=== PATIENT | male | born 1970 | race Caucasian/White ===

== ENCOUNTER 2017-02-01 20:55 | Inpatient (IN) | payer MEDICARE, BC ==
[~2017-02-01] VITALS: Ht 172.7 cm; Wt 96.3 kg
[~2017-02-01 20:55] MED LIST: IND20 PO; LOXA50CA PO; NAPR-688 PO; SERT50TA PO; TRAZ100T15 PO
[2017-02-01 20:57] VITALS: Ht 172.7 cm; Wt 96.3 kg
[2017-02-01] MEDS ORDERED: DIPHTH/TET/ACEL PERTUSS (ADULT) 0.5 ML VIAL IM* ONE (22:00)
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
--- NOTE | 2017-02-01 22:22 | RADRPT ---
PROCEDURE: CT Head without. CLINICAL INDICATION: Head injury. TECHNIQUE: The study was performed utilizing a multi-slice, multidetector CT scanner. Direct spira l 1 mm axial sections were obtained through the head without the use of intravenous contrast materia l. 1 or more of the following dose reduction techniques were utilized: Automated exposure control, adjustment of the mA and/or kV according to patient's size, iterative reconstruction technique. Co ирина and sagittal reformations were obtained. The images were reviewed on a PACS workstation. RADIATION DOSE: CTDIvol: 43.2 mGyDLP: 844.2 mGy-cm COMPARISON: 06/10/2012 FINDINGS: There is asymmetric prominence of the left tentorial leaflet relative to the right, measuring 4-5 mm in maximal diameter, concerning for possible subdural hemorrhage. There is mild streak artifact al suzanne the margins of the left posterior temporal and parietal lobes, without definite subdural or intr aparenchymal hemorrhage in these regions. There is no mass lesion, midline shift or hydrocephalus. The ventricles, sulci and cisterns are within normal limits. The white matter is unremarkable. Th e jung-white matter differentiation is preserved. The basal cisterns are patent. The midline struc tures are intact. There are benign bilateral basal ganglia calcifications. There is severe soft ti ssue swelling in the left parietal region with subgaleal hematoma extending anteriorly. There is no evidence of underlying calvarial fracture. The orbits are normal in appearance. The visualized par anasal sinuses, mastoid air cells and middle ear cavities are normally aerated. IMPRESSION: 1. Asymmetric prominence of the left tentorial leaflet relative to the right, concerning for possib le small subdural hemorrhage in this region. 2. Soft tissue swelling in the left parietal region with subsequent subgaleal hematoma. No evidenc e of underlying calvarial fracture. RPTAT: HGAS .Yakov Link MD, Date Time Electronically viewed and signed by .Yakov Link MD, MD on 02/01/2017 22:22 .S/
[2017-02-01] MEDS ORDERED: ONDANSETRON 4 MG INJ IV STA (22:55)
[2017-02-01] MEDS ORDERED: morphine 4 MG/ML VIAL IV STA (22:55)
--- NOTE | 2017-02-01 23:13 | EN ---
Date/Time of Note Date/Time of Note DATE: 02/01/17 TIME: 23:12 ER Progress Note Discuss case with on-call neurosurgeon Dr. Barnett. Patient be admitted to ICU to hospitalist. Laceration Repair by me: Anesthesia: 1% lidocaine locally Location: Scalp Tendon/Joint/Nerves: No injury Foreign body: None detected after copious irrigation and exploration Technique: [place] Complexity: No subcutaneous sutures/mucosal repair/ edge excision Post Closure Length: 3 cm Patient's bleeding was easily controlled in the department and there is no indication of anemia. No evidence of compartment syndrome, neurologic injury, vascular injury, open joint, tendon laceration, or foreign body. Patient is appropriate for outpatient follow up. 48 hour wound check. Scar minimization instructions given. FRANCIE FERGUSON Feb 01, 2017 23:13
[2017-02-01 23:14] LABS: ADD SCAN DIFF NO
[2017-02-01 23:18] LABS: ABNORMAL IP MESSAGE 1; HEMATOCRIT 39.8 % (42.0-52.0); HEMOGLOBIN 13.6 g/dl (14.0-18.0); MEAN CORPUSCULAR HEMOGLOBIN 32.1 pg (29.0-33.0); MEAN CORPUSCULAR HGB CONC 34.2 g/dl (32.0-37.0); MEAN CORPUSCULAR VOLUME 93.9 fl (82.0-101.0); MEAN PLATELET VOLUME 10.2 fl (7.4-10.4); PLATELET COUNT 81 10^3/UL (140-415); RED BLOOD COUNT 4.24 10^6/ul (4.70-6.10); RED CELL DISTRIBUTION WIDTH 14.4 % (11.5-14.5); WHITE BLOOD COUNT 4.2 10^3/ul (4.8-10.8)
[2017-02-01 23:32] LABS: INR 1.13; PARTIAL THROMBOPLASTIN TIME 26.2 Sec (25.0-35.0); PROTIME 14.5 Sec (12.2-14.2); PT RATIO 1.1
[2017-02-01 23:35] LABS: ALANINE AMINOTRANSFERASE 54 IU/L (13-69); ALBUMIN 4.5 g/dl (3.3-4.9); ALBUMIN/GLOBULIN RATIO 1.45; ALKALINE PHOSPHATASE 188 IU/L (42-121); ANION GAP 12 (8-16); ASPARTATE AMINO TRANSFERASE 57 IU/L (15-46); BLOOD UREA NITROGEN 10 mg/dl (7-20); CALCIUM 8.9 mg/dl (8.4-10.2); CARBON DIOXIDE 23 mmol/L (21-31); CHLORIDE 107 mmol/L (97-110); CREATININE 0.74 mg/dl (0.61-1.24); GLUCOSE 110 mg/dl (70-220); POTASSIUM 3.7 mmol/L (3.5-5.1); SODIUM 138 mmol/L (135-144); TOTAL PROTEIN 7.6 g/dl (6.1-8.1)
[2017-02-01 23:46] LABS: B-TYPE NATRIURETIC PEPTIDE 16 PG/ML (0-125)
[2017-02-01 23:47] LABS: TROPONIN-I < 0.012 ng/ml (0.00-0.12)
[2017-02-02] VITALS (8 sets, daily range): BP systolic 99–146; BP diastolic 59–92; PULSE 70–77; RESP 18–23; TEMP 79.9
[2017-02-02 00:29] LABS: LYMPHOCYTES # 0.8 10^3/ul (0.8-2.9); MONOCYTE # 0.3 10^3/ul (0.3-0.9); NEUTROPHIL # 3.1 10^3/ul (1.6-7.5); PLATELET ESTIMATE PLT APPEAR DECREASED
--- NOTE | 2017-02-02 00:29 | RADRPT ---
PROCEDURE: XR Chest. CLINICAL INDICATION: Chest pain. TECHNIQUE: Portable AP upright view of the chest was obtained. COMPARISON: 05/03/2012 FINDINGS: The cardiomediastinal silhouette is within normal limits allowing for technique. The lungs are silvana r. There is no evidence for pleural effusion, pneumothorax or pulmonary vascular congestion. The o sseous structures are intact with no evidence for acute abnormality. RPTAT:HJJR IMPRESSION: No evidence for acute intrathoracic pathology. Physician Quincy Date Time Electronically viewed and signed by Physician Quincy on 02/02/2017 00:29 JR/
[2017-02-02] MEDS ORDERED: LABETALOL HCL 20MG INJ IV ONE (02:30)
[2017-02-02] MEDS ORDERED: morphine 4 MG/ML VIAL IV STA (05:07)
[2017-02-02] MEDS ORDERED: LORAZEPAM 2 MG INJ IV PRN (06:30)
[2017-02-02] MEDS ORDERED: ONDANSETRON 4 MG INJ IV PRN (06:30)
[2017-02-02] MEDS ORDERED: ACETAMINOPHEN 650MG/20.3ML CUP PO PRN (06:30)
[2017-02-02] MEDS ORDERED: morphine 2 MG INJ IV PRN (06:30)
[2017-02-02 06:38] LABS: ADD SCAN DIFF NO
[2017-02-02 06:47] LABS: ABNORMAL IP MESSAGE 1; HEMATOCRIT 39.1 % (42.0-52.0); HEMOGLOBIN 13.7 g/dl (14.0-18.0); MEAN CORPUSCULAR VOLUME 94.2 fl (82.0-101.0); MEAN PLATELET VOLUME 10.4 fl (7.4-10.4); PLATELET COUNT 79 10^3/UL (140-415); RED BLOOD COUNT 4.15 10^6/ul (4.70-6.10); RED CELL DISTRIBUTION WIDTH 14.5 % (11.5-14.5); WHITE BLOOD COUNT 4.2 10^3/ul (4.8-10.8)
[2017-02-02 07:01] LABS: ALBUMIN 4.4 g/dl (3.3-4.9); ALBUMIN/GLOBULIN RATIO 1.51; BILIRUBIN,INDIRECT 1.6 mg/dl (0-1.1); BILIRUBIN,TOTAL 1.6 mg/dl (0.2-1.3); CALCIUM 8.8 mg/dl (8.4-10.2); CREATININE 0.76 mg/dl (0.61-1.24); POTASSIUM 4.1 mmol/L (3.5-5.1); TOTAL PROTEIN 7.3 g/dl (6.1-8.1)
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
[2017-02-02] MEDS ORDERED: SERTRALINE 50 MG TAB PO SCH (09:00)
[2017-02-02] MEDS ORDERED: PROPRANOLOL 20 MG TAB PO SCH (09:00)
[2017-02-02 09:16] LABS: MONOCYTE # 0.6 10^3/ul (0.3-0.9); NEUTROPHIL # 2.6 10^3/ul (1.6-7.5); PLATELET ESTIMATE PLT APPEAR DECREASED
[2017-02-02] MEDS ORDERED: hydrALAzine 20 MG INJ IV PRN (09:30)
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
--- NOTE | 2017-02-02 09:58 | PN ---
Date/Time of Note Date/Time of Note DATE: 02/02/17 TIME: 09:58 Assessment/Plan Lines/Catheters IV Catheter Type (from [facility]): Peripheral IV Exam/Review of Systems Vital Signs Vitals Vital Signs Date Time Temp Pulse Resp B/P Pulse Ox O2 Delivery O2 Flow Rate FiO2 02/02/17 05:52 73 18 135/75 99 Nasal Cannula 02/02/17 04:30 3.0 02/02/17 03:30 98.4 Results Result Diagram: 02/02/17 0630 02/02/17 0630 Results 24 hrs Laboratory Tests Test 02/01/17 22:45 02/02/17 06:30 White Blood Count 4.2 L 4.2 L Red Blood Count 4.24 #L 4.15 L Hemoglobin 13.6 #L 13.7 L Hematocrit 39.8 #L 39.1 L Mean Corpuscular Volume 93.9 94.2 Mean Corpuscular Hemoglobin 32.1 33.0 Mean Corpuscular Hemoglobin Concent 34.2 35.0 Red Cell Distribution Width 14.4 14.5 Platelet Count 81 L 79 L Mean Platelet Volume 10.2 # 10.4 Neutrophils % 74.0 61.0 Band Neutrophils % 1.0 Lymphocytes % 18.0 23.0 Monocytes % 7.0 14.0 H Neutrophils # 3.1 2.6 Lymphocytes # 0.8 1.0 Monocytes # 0.3 0.6 Platelet Estimate PLT APPEAR DECREASED PLT APPEAR DECREASED Prothrombin Time 14.5 H Prothrombin Time Ratio 1.1 INR International Normalized Ratio 1.13 Activated Partial Thromboplast Time 26.2 Sodium Level 138 143 Potassium Level 3.7 4.1 Chloride Level 107 109 Carbon Dioxide Level 23 24 Anion Gap 12 14 Blood Urea Nitrogen 10 12 Creatinine 0.74 0.76 Glucose Level 110 108 Calcium Level 8.9 8.8 Total Bilirubin 1.0 1.6 H Direct Bilirubin 0.00 0.00 Indirect Bilirubin 1.0 1.6 H Aspartate Amino Transf (AST/SGOT) 57 H 51 H Alanine Aminotransferase (ALT/SGPT) 54 51 Alkaline Phosphatase 188 H 130 H Troponin I < 0.012 B-Type Natriuretic Peptide 16 Total Protein 7.6 7.3 Albumin 4.5 4.4 Globulin 3.10 2.90 Albumin/Globulin Ratio 1.45 1.51 Eosinophils % 1.0 Myelocytes % 1.0 H Eosinophils # 0.0 Myelocytes # 0.0 Large Platelets OCCASIONAL Medications Medications Current Medications Ondansetron HCl (Zofran Inj) 4 mg Q6H PRN IV NAUSEA AND/OR VOMITING; Start 02/02 at 06:30 Acetaminophen (Tylenol Liquid) 650 mg Q6H PRN PO PAIN LEVEL 1-3 OR FEVER; Start 02/02/17 at 06:30 Morphine Sulfate (morphine) 2 mg Q4H PRN IV PAIN LEVEL 7-10; Start 02/02/17 at 06:30 Lorazepam (Ativan) 1 mg Q2H PRN IV ANXIETY; Start 02/02/17 at 06:30 Propranolol HCl (Inderal) 10 mg BID PO Last administered on 02/02/17 08:57; Admin Dose 10 MG; Start 02/02/17 at 09:00 Sertraline HCl (Zoloft) 150 mg QAM PO ; Start 02/02/17 at 09:00 Trazodone HCl (Desyrel) 100 mg HS PO ; Start 02/02/17 at 21:00 Miscellaneous Information 50 mg HS PO ; Start 02/02/17 at 21:00; Status UNV Hydralazine HCl (Apresoline) 10 mg Q4H PRN IV sbp>160; Start 02/02/17 at 09:30 BHAVIN COOPER Feb 02, 2017 09:58
--- NOTE | 2017-02-02 10:01 | QN ---
Documentation Comment Observation Note: Time: 4 hours Family Hx: Negative for diabetes Evaluation: Multiple exams showed improving symptoms and no evidence of clinical decompensation. Dr. Barnett from neurosurgery has seen the patient and has recommended a repeat CT scan of the head and cervical spine. He said that if these are unchanged the patient would likely require no neurosurgery and from his standpoint could be discharged. DEEPIKA LUCIANO MD Feb 02, 2017 10:01
--- NOTE | 2017-02-02 11:14 | RADRPT ---
PROCEDURE: CT Brain without contrast. CLINICAL INDICATION: Hemorrhage; Neurologic deficit TECHNIQUE: A CT of the brain was performed on multidetector high-resolution CT scanner utilizing a xial sections from the skull base through the vertex without contrast. One or more of the following dose reduction techniques were used: Automated exposure control, Adjustment of the mA and/or kV acc ording to patient size, and/or use of iterative reconstruction technique. DOSE: CTDI = 45 mGy and the DLP = 720 mGy-cm. COMPARISON: Head CT 02/01/2017 FINDINGS: 2 mm left posterior parafalcine and left tentorial subdural hematoma is mildly decreased size. No e vidence of new intracranial bleeding or midline shift. Large scalp hematoma at the vertex. The jung-white differentiation is grossly preserved. The ventricles are stable size. No significant opacification of the visualized paranasal sinuses or mastoids. IMPRESSION: 2 mm left posterior parafalcine and left tentorial subdural hematoma is mildly decreased size. No e vidence of new intracranial bleeding or midline shift. Large scalp hematoma at the vertex. RPTAT: AA .Nick Tejada MD, MD Date Time Electronically viewed and signed by .Nick Tejada MD, MD on 02/02/2017 11:14 .T/
--- NOTE | 2017-02-02 11:20 | RADRPT ---
PROCEDURE: CT Cervical Spine without contrast. CLINICAL INDICATION: Trauma, neck pain. TECHNIQUE: A CT of the cervical spine was performed on a multidetector CT scanner utilizing high-r esolution axial imaging from the skull base through the cervical thoracic junction. Sagittal and co ирина reconstructions were performed. CTDI: 22 mGy. DLP: 483 mGycm. One or more of the following dose reduction techniques were used: Automated exposure control, Adjustment of the mA and/or kV acc ording to patient size, and/or use of iterative reconstruction technique. COMPARISON: None available. FINDINGS: There is reversal of lordosis of the cervical spine. No acute cervical vertebral fracture or sublux ation. Moderate disk space narrowing C5-6. 2 mm disk osteophyte complex at this level results in b orderline, mild spinal canal narrowing. Facet arthropathy C2-3 with partial fusion on the left. The prevertebral soft tissues are unremarkable. The partially visualized lung apices are unremarkable. IMPRESSION: Reversal of the cervical lordosis. No acute cervical vertebral fracture or subluxation. Moderate discogenic disease C5-6. RPTAT: AA .Nick Tejada MD, Date Time Electronically viewed and signed by .Nick Tejada MD, on 02/02/2017 11:19 .T/
[2017-02-02] MEDS ORDERED: [UNRECOGNIZED DRUG - REMARK] XX SCH (11:30)
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
[2017-02-02] MEDS ORDERED: HYDR-906 PO (14:53)
[2017-02-02] MEDS ORDERED: LOXAPINE SUCCINATE 50 MG XX SCH (21:00)
[2017-02-02] MEDS ORDERED: traZODone 100 MG TAB PO SCH (21:00)
== END 2017-02-02 18:00 | disposition home or self-care (01) | DRG 86 ==
LOC: E/R 20:55 → ICU 02-02 01:04
PROVIDERS: ADMIT Internal Medicine; ATTEND Internal Medicine
PROC: 0HQ0XZZ Repair Scalp Skin, External Approach (ICD-10-PCS; principal; 2017-02-01)
DX: S06.5X0A Traumatic subdural hemorrhage without loss of consciousness, initial encounter (principal); I85.10 Secondary esophageal varices without bleeding; K70.30 Alcoholic cirrhosis of liver without ascites; S01.01XA Laceration without foreign body of scalp, initial encounter; V89.3XXA Person injured in unspecified nonmotor-vehicle accident, traffic, initial encounter; V00.831A Fall from motorized mobility scooter, initial encounter; I10 Essential (primary) hypertension; F10.20 Alcohol dependence, uncomplicated; F32.9 Major depressive disorder, single episode, unspecified; F41.9 Anxiety disorder, unspecified
CPT/HCPCS: 70450; 71010; 72125; 80053; 83880; 84484; 85025; 85610; 85730; 90715; 93005; J0360; J2270; J2405

== ENCOUNTER 2017-02-13 05:41 | Emergency (ER) | payer MEDICARE, BC ==
[~2017-02-13] VITALS: Ht 172.7 cm; Wt 98.0 kg
[~2017-02-13 05:41] MED LIST changes: +HYDR-906 PO
[2017-02-13 05:45] VITALS: Ht 172.7 cm; Wt 98.0 kg
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
== END 2017-02-13 07:17 | disposition home or self-care (01) ==
LOC: FTE 05:41
DX: Z48.02 Encounter for removal of sutures (principal)
CPT/HCPCS: 99281

== ENCOUNTER 2017-08-12 22:53 | Emergency (ER) | payer BC, MEDICARE ==
[~2017-08-12] VITALS: Ht 177.8 cm; Wt 99.0 kg
[2017-08-12 23:04] VITALS: Ht 177.8 cm; Wt 99.0 kg
[2017-08-13] MEDS ORDERED: NAPR-260 PO (08:01)
[2017-08-13] MEDS ORDERED: HYDR-906 PO (08:01)
== END 2017-08-12 23:57 | disposition left against medical advice (07) ==
LOC: FTE 22:53
DX: Z53.21 Procedure and treatment not carried out due to patient leaving prior to being seen by health care provider (principal)

== ENCOUNTER 2017-08-13 07:13 | Emergency (ER) | payer MEDICARE, BC ==
[~2017-08-13] VITALS: Ht 165.1 cm; Wt 98.7 kg
[2017-08-13 07:17] VITALS: Ht 165.1 cm; Wt 98.7 kg
[2017-08-13] MEDS ORDERED: IBUPROFEN 800 MG TAB PO ONE (07:30)
--- NOTE | 2017-08-13 07:52 | RADRPT ---
PROCEDURE: XR Left Ankle. CLINICAL INDICATION: heel/ankle pain TECHNIQUE: AP, oblique and lateral views of the left ankle were performed. COMPARISON: CR ANKLE 11/13/2012 FINDINGS: There is normal mineralization and alignment. No acute fracture or osseous lesion is identified. The joints are normal. The soft tissues are unremarkable. IMPRESSION: No acute osseous abnormality. Physician Kosta Date Time Electronically viewed and signed by Physician Kosta on 08/13/2017 07:52 /
[2017-08-13] MEDS ORDERED: HYDR-906 PO (08:01)
[2017-08-13] MEDS ORDERED: NAPR-260 PO (08:01)
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
== END 2017-08-13 08:11 | disposition home or self-care (01) ==
LOC: FTE 07:13
DX: M25.572 Pain in left ankle and joints of left foot (principal)
CPT/HCPCS: 73610

== ENCOUNTER 2019-02-14 08:47 | Emergency (ER) | payer MEDICARE, BC ==
[~2019-02-14] VITALS: Ht 167.6 cm; Wt 98.7 kg
[~2019-02-14 08:47] MED LIST changes: +HYDR-4011 PO; -HYDR-906 PO; +NAPR-985 PO; +TRA100 PO; -TRAZ100T15 PO
[2019-02-14 08:51] VITALS: RESP 20; Ht 167.6 cm; Wt 98.7 kg
[2019-02-14] MEDS ORDERED: ACETAMINOPHEN 500 MG TAB PO STA (09:27)
[2019-02-14] MEDS ORDERED: ALBUTEROL 0.083% (NEB) 2.5 MG/3 ML AMP HHN STA (09:27)
[2019-02-14] MEDS ORDERED: IPRATROPIUM (NEB) 0.5 MG/2.5 ML AMP HHN ONE (09:30)
[2019-02-14] MEDS ORDERED: DEXAMETHASONE 10 MG/ML 1 ML INJ IM ONE (09:30)
[2019-02-14] MEDS ORDERED: IBUPROFEN 800 MG TAB PO ONE (09:30)
[2019-02-14] MEDS ORDERED: LIDOCAINE 1% (MPF) 5 ML VIAL INJ ONE (10:30)
[2019-02-14] MEDS ORDERED: CEFTRIAXONE 1 GM INJ IM ONE (10:30)
[2019-02-14] MEDS ORDERED: LEVO750T25 PO (10:34)
[2019-02-14] MEDS ORDERED: D-ME473S2 PO (10:34)
[2019-02-14] MEDS ORDERED: BENZ-6 PO (10:34)
[2019-02-14] MEDS ORDERED: PRED20TA PO (10:34)
[2019-02-14] MEDS ORDERED: ALBU8.5H8 INH (10:36)
[2019-02-14 10:40] VITALS: BP 126/72; PULSE 72
--- NOTE | 2019-02-14 13:15 | ERD ---
ER Documentation Chief Complaint Chief Complaint CHEST WALL PAIN w/COUGH & CONGESTION X4 DAYS HPI 48-year-old male presenting with productive cough for the last 4 days with development of fever over the last 4 days. Patient states is been taking Mucinex and Sudafed with mild alleviation of his congestion however is continued. He denies any pulmonary problems in the past. Denies any other medical problems. NKDA. Surgical history denies. Social history denies ROS All systems reviewed and are negative except as per history of present illness. Medications Home Meds Active Scripts Albuterol Sulfate* (Proair HFA*) 8.5 Gm Hfa.aer.ad, 2 PUFF INH Q4, #1 INHALER Prov:DANIEL THOMAS PA-C 02/14/19 Dextromethorphan Hb-Promethazine Hcl* (Promethazine DM* Syrup) 473 Ml Syrup, 5 ML PO Q6 PRN for COUGH, #100 ML Prov:DANIEL THOMAS PA-C 02/14/19 Benzonatate* (Tessalon Perle*) 100 Mg Capsule, 100 MG PO Q8H PRN for COUGH, #30 CAP Prov:DANIEL THOMAS PA-C 02/14/19 Prednisone* (Prednisone*) 20 Mg Tab, 40 MG PO DAILY for 4 Days, TAB Prov:DANIEL THOMAS PA-C 02/14/19 Levofloxacin* (Levaquin*) 750 Mg Tablet, 750 MG PO DAILY for 5 Days, TAB Prov:DANIEL THOMAS PA-C 02/14/19 Naproxen* (Naprosyn*) 500 Mg Tablet, 500 MG PO BID PRN for PAIN AND/OR INFLAMMATION, #30 TAB Prov:DANIEL THOMAS PA-C 08/13/17 Hydrocodone/Acetaminophen (Lawson 5-325 Tablet) 1 Each Tablet, 1 TAB PO Q6H PRN for PAIN, #7 TAB Prov:DANIEL THOMASC 08/13/17 Hydrocodone/Acetaminophen (Lawson 5-325 Tablet) 1 Each Tablet, 1 EACH PO Q4, #30 TAB Prov:BHAVIN COOPER MENTAL TESTER 02/02/17 Reported Medications Sertraline Hcl* (Zoloft*) 50 Mg Tablet, 150 MG PO QAM, TAB 01/17/15 Naproxen* (Naproxen*) 500 Mg Tablet, 500 MG PO BID PRN for PAIN, TAB 01/17/15 Loxapine Succinate (Loxitane) 50 Mg Capsule, 50 MG PO HS 06/24/13 Trazodone Hcl* (Trazodone Hcl*) 100 Mg Tablet, 100 MG PO HS 06/24/13 Propranolol Hcl* (Inderal*) 20 Mg Tab, PO AM 06/10/12 Allergies Allergies: Coded Allergies: No Known Allergy (Unverified , 08/13/17) PMhx/Soc History of Surgery: No Anesthesia Reaction: No Hx Neurological Disorder: No Hx Respiratory Disorders: No Hx Cardiac Disorders: No Hx Psychiatric Problems: No Hx Miscellaneous Medical Probl: No Hx Alcohol Use: Yes (OCASSIONALLY) Hx Substance Use: No Hx Tobacco Use: No Smoking Status: Never smoker FmHx Family History: No diabetes, No coronary disease, No other Physical Exam Vitals Vital Signs Date Temp Pulse Resp B/P (MAP) Pulse Ox O2 O2 Flow FiO2 Time Delivery Rate 02/14/19 99.0 72 126/72 99 Room Air 10:40 (90) 02/14/19 89 20 95 21 09:41 02/14/19 101.1 95 20 143/72 97 08:51 (95) Physical Exam GENERAL: The patient is well-appearing, well-nourished, in no acute distress HEENT: Atraumatic. Conjunctivae are pink. Pupils equal, round, and reactive to light. There is no scleral icterus. Tympanic membranes clear bilaterally. Oropharynx clear. NECK: C-spine is soft and supple. There is no meningismus. There is no cervical lymphadenopathy. CHEST: Coarse breath sounds heard to the right lung field with no retractions. No wheezing. HEART: Regular rate and rhythm. No murmurs, clicks, rubs or gallops. Results 24 hrs Current Medications Medications Dose Sig/Courtney Start Time Status Last (Trade) Ordered Route PRN Stop Time Admin Dose Reason Admin Albuterol 5 mg ONCE STAT 02/14/19 DC 02/14/19 (Proventil HHN 09:27 09:39 0.083% (Neb)) 02/14/19 09:29 Ipratropium 0.5 mg ONCE ONCE 02/14/19 DC 02/14/19 [place] HHN 09:30 09:39 (Atrovent 02/14/19 09:31 0.02% (Neb)) 10 mg ONCE ONCE 02/14/19 DC 02/14/19 Dexamethasone IM 09:30 09:40 (Decadron) 02/14/19 09:31 1,000 mg ONCE STAT 02/14/19 DC 02/14/19 Acetaminophen PO 09:27 09:40 (Tylenol 02/14/19 09:29 Tab) Ibuprofen 800 mg ONCE ONCE 02/14/19 DC 02/14/19 (Motrin) PO 09:30 09:40 02/14/19 09:31 Ceftriaxone 1 gm ONCE ONCE 02/14/19 DC 02/14/19 Sodium IM 10:30 10:33 (Rocephin) 02/14/19 10:31 Lidocaine 5 ml ONCE ONCE 02/14/19 DC 02/14/19 (Xylocaine INJ 10:30 10:33 1% (Mpf)) 02/14/19 10:31 Procedures/MDM DIAGNOSTIC IMAGING REPORT Patient: JASMYN CORDERO : 1970 Age: 48 Sex: M MR #: [id number] DOS: 02/14/19926 Ordering MD: NATALIE THOMAS PA-C Location: [facility] Room/Bed: PROCEDURE: XR chest. CLINICAL INDICATION: Cough TECHNIQUE: A single portable view of the chest was obtained. COMPARISON: 05/03/2012 FINDINGS: Mild bibasilar opacity may represent atelectasis or airspace disease. There is no pleural effusion or pneumothorax. The cardiac and mediastinal contours are within normal limits. IMPRESSION: 1. Mild bibasilar opacities may represent atelectasis or airspace disease. ER Course: Albuterol and Atrovent breathing treatment given in ED. Decadron giv en ED. Ibuprofen and Tylenol given in ED. IM injection of Rocephin given. MDM: 48-year-old male presenting with productive cough. Patient exam is concerning for pneumonia and I will treat with antibiotics. I have low suspicion for sepsis. I have considered endocarditis versus myocarditis and I have low suspicion. Patient has productive cough. I have low suspicion for acute abdominal emergency. I have low suspicion for meningitis. Patient is discharged with supportive medications and told to follow-up with primary care. Patient is told symptoms change or worsen to return immediately to the ER. All questions answered at discharge Departure Diagnosis: Primary Impression: Fever Additional Impression: Pneumonia Condition: Stable Patient Instructions: Fever Control (Adult), Pneumonia (Adult) Referrals: COMMUNITY CLINICS YOU HAVE RECEIVED A MEDICAL SCREENING EXAM AND THE RESULTS INDICATE THAT YOU DO NOT HAVE A CONDITION THAT REQUIRES URGENT TREATMENT IN THE EMERGENCY DEPARTMENT. FURTHER EVALUATION AND TREATMENT OF YOUR CONDITION CAN WAIT UNTIL YOU ARE SEEN IN YOUR DOCTORS OFFICE WITHIN THE NEXT 1-2 DAYS. IT IS YOUR RESPONSIBILITY TO MAKE AN APPOINTMENT FOR FOLOW-UP CARE. IF YOU HAVE A PRIMARY DOCTOR --you should call your primary doctor and schedule an appointment IF YOU DO NOT HAVE A PRIMARY DOCTOR YOU CAN CALL OUR PHYSICIAN REFERRAL HOTLINE AT IF YOU CAN NOT AFFORD TO SEE A PHYSICIAN YOU CAN CHOSE FROM THE FOLLOWING [facility] CL[facility] [address] [facility] [address] [facility] [facility] [address] [facility] [address] [facility] [address] [facility]. [facility]. [address] Additional Instructions: FOLLOW UP WITH YOUR PRIMARY CARE PHYSICIAN TOMORROW.Return to this facility if you are not improving as expected. DANIEL THOMAS PA-C Feb 14, 2019 13:15
== END 2019-02-14 10:43 | disposition home or self-care (01) ==
LOC: FTE 08:47
DX: J18.9 Pneumonia, unspecified organism (principal)
CPT/HCPCS: 71045; 94664; 96372; 99284; J0696; J1100